=== PATIENT | female | born 1945 | race Caucasian/White ===

== ENCOUNTER → 2017-04-02 | Outpatient (CLI) | payer OTHER ==
[~2017-04-02] MED LIST: ASPIR-TRIN325 MG PO; FERROUS SULFAT325 MG PO; FOSAMAX70 MG PO; LEVAQUIN250 MG PO; LEVAQUIN500 MG PO; LOPRESSOR 25 MG25 MG PO; NORCO 5-325 TA1 EACH PO; PEPCID20 MG PO; PLAVIX 75 MG TA75 MG PO; PREDNISONE 20 M20 MG PO; PROAIR HFA8.5 GM INH; SENOKOT-S TABL1 EACH PO; SYNTHROID25 MCG PO; TAMIFLU75 MG PO; TYLENOL 325MG325 MG PO; ULTRAM50 MG PO; VENTOLIN/PROVE0.5 ML INH
== END ==
LOC: KOH-I 13:00
DX: I65.29 Occlusion and stenosis of unspecified carotid artery (principal); I65.23 Occlusion and stenosis of bilateral carotid arteries; R09.89 Other specified symptoms and signs involving the circulatory and respiratory systems
CPT/HCPCS: 93880